=== PATIENT | female | born 1985 | race Hispanic/Latino ===

== ENCOUNTER 2023-11-26 20:23 | Emergency (ER) | payer MEDICAID, OTHER ==
[2023-11-26] MEDS ORDERED: Lidocaine 1% PF 5 ML VIAL ONE ×2 (20:35→20:47)
[2023-11-26] MEDS ORDERED: Boostrix 0.5 ML (Tdap) VIAL (>/=7 yrs of age) ONE (20:44)
[2023-11-26] MEDS ORDERED: Bacitracin 1 PK ONE (21:16)
== END 2023-11-26 21:27 | disposition home or self-care (01) ==
LOC: MADERS 20:23
DX: O9A.219 Injury, poisoning and certain other consequences of external causes complicating pregnancy, unspecified trimester (principal); S91.311A Laceration without foreign body, right foot, initial encounter; Z23 Encounter for immunization; Z3A.00 Weeks of gestation of pregnancy not specified
CPT/HCPCS: 12002; 90471; 90715